=== PATIENT | female | born 1980 ===

== ENCOUNTER 2017-07-10 12:17 | Emergency (ER) | payer MEDICAID, OTHER ==
[2017-07-10 12:18] VITALS: BMI 48.9
[2017-07-10 12:44] VITALS: TEMP 97.9
[2017-07-10 13:25] VITALS: RESP 18; O2SAT 98
--- NOTE | 2017-07-10 14:06 | RAD ---
HISTORY: upper back pain COMPARISON: None available. TECHNIQUE: Chest PA and lateral FINDINGS: Examination limited by habitus and hypoinflation. LUNGS: No focal consolidation. Please note that chest x-ray has limited sensitivity for the detection of pulmonary masses. PLEURA: No significant pleural effusion identified. No definite pneumothorax . CARDIOVASCULAR: The cardiomediastinal silhouette appears within normal limits of size. OSSEOUS STRUCTURES: Mild degenerative changes. VISUALIZED UPPER ABDOMEN: Unremarkable. OTHER FINDINGS: None. IMPRESSION: No focal consolidation, significant pleural effusion, or definite pneumothorax identified.
--- NOTE | 2017-07-10 14:17 | ED PDOC ---
Arrival/HPI - General Chief Complaint: Back Pain Time Seen by Provider: 07/10/17 13:18 Historian: Patient - History of Present Illness Narrative History of Present Illness (Text): 07/10/17 14:14 36-year-old female presents today with a three-day history of right upper back pain. She denies chest pain shortness of breath. Denies fevers or chills. Denies nausea vomiting diarrhea or constipation. Patient denies any recent trauma or injury. Patient states she woke up with the pain 3 days ago. Patient states she takes Advil with complete relief of the pain. Patient states the only reason she is here today is because her boyfriend had a similar pain and was diagnosed with a pneumonia. Patient denies abdominal pain. Denies dizziness or weakness. Denies cough or shortness of breath or chest pain. No other complaints Past Medical History - Provider Review Nursing Documentation Reviewed: Yes - Travel History Have you recently traveled outside [place] w/in the past 3 mons?: No - Infectious Disease Hx of Infectious Diseases: None - Cardiac Hx Hypertension: Yes - Psychiatric Hx Depression: No Hx Emotional Abuse: No Hx Physical Abuse: No Hx Substance Use: No - Surgical History Hx Tonsillectomy: Yes - Anesthesia Hx Anesthesia: Yes Hx Anesthesia Reactions: No Hx Malignant Hyperthermia: No - Suicidal Assessment Feels Threatened In Home Enviroment: No Family/Social History - Physician Review Nursing Documentation Reviewed: Yes Family/Social History: Unknown Family HX Smoking Status: Former Smoker Hx Alcohol Use: No Hx Substance Use: No Hx Substance Use Treatment: No Allergies/Home Meds Allergies/Adverse Reactions: Allergies No Known Allergies Allergy (Verified 07/10/17 12:44) Review of Systems - Review of Systems Constitutional: absent: Fatigue, Fevers ENT: absent: Sinus Congestion Respiratory: absent: SOB, Cough Cardiovascular: absent: Chest Pain, Palpitations Gastrointestinal: absent: Abdominal Pain, Diarrhea, Nausea, Vomiting Genitourinary Female: absent: Dysuria, Frequency, Hematuria Musculoskeletal: Back Pain. absent: Arthralgias, Neck Pain Skin: absent: Rash, Pruritis Neurological: absent: Headache, Dizziness Psychiatric: absent: Anxiety, Depression Physical Exam Vital Signs Reviewed: Yes Vital Signs Temp Pulse Resp BP Pulse Ox 07/10/17 13:25 71 18 143/89 98 07/10/17 12:39 97.9 F 75 20 143/89 99 Temperature: Afebrile Blood Pressure: Normal Pulse: Regular Respiratory Rate: Normal Appearance: Positive for: Well-Appearing, Non-Toxic, Comfortable Pain Distress: None Mental Status: Positive for: Alert and Oriented X 3 - Systems Exam Head: Present: Atraumatic Mouth: Present: Moist Mucous Membranes Neck: Present: Normal Range of Motion, Paraspinal Tenderness (minimal right sided trapezius tenderness. ). No: MIDLINE TENDERNESS Respiratory/Chest: Present: Clear to Auscultation, Good Air Exchange. No: Respiratory Distress, Accessory Muscle Use Cardiovascular: Present: Regular Rate and Rhythm Abdomen: No: Tenderness Upper Extremity: Present: Normal Inspection, Normal ROM Lower Extremity: Present: Normal ROM Neurological: Present: GCS=15, Speech Normal, Gait Normal Skin: Present: Warm, Dry, Normal Color. No: Rashes Psychiatric: Present: Alert, Oriented x 3 Medical Decision Making ED Course and Treatment: 07/10/17 14:18 Patient nontoxic well-appearing in no distress with stable vital signs. Patient states she took Aleve before arrival with complete resolution of her symptoms. Patient is concerned about pneumonia as her boyfriend had same symptoms and had pneumonia last week. Patient refusing any medications at present time. Chest x-ray: No infiltrate and no effusion or cardiomegaly Discussed the results and after the patient advised follow-up with primary care physician within the next 2 days. Patient verbalizes understanding of discharge instructions and need for immediate followup. Impression: Back pain Motrin every 6 hours as needed for pain Flexeril one tablet every 8 hours as needed for muscle spasms: May cause drowsiness Followup with primary care physician within the next 2 days Return if symptoms worsen persist or if new symptoms develop - RAD Interpretation Radiology Orders: 07/10/17 13:18 CHEST TWO VIEWS (PA/LAT) [RAD] Stat Disposition/Present on Arrival - Present on Arrival Any Indicators Present on Arrival: No History of DVT/PE: No History of Uncontrolled Diabetes: No Urinary Catheter: No History of Decub. Ulcer: No History Surgical Site Infection Following: None - Disposition Have Diagnosis and Disposition been Completed?: Yes Diagnosis: Back pain Disposition: HOME/ ROUTINE Disposition Time: 14:15 Patient Plan: Discharge Condition: GOOD Discharge Instructions (ExitCare): Back Pain (ED) Additional Instructions: Motrin every 6 hours as needed for pain Flexeril one tablet every 8 hours as needed for muscle spasms: May cause drowsiness Followup with primary care physician within the next 2 days Return if symptoms worsen persist or if new symptoms develop Prescriptions: Cyclobenzaprine [Cyclobenzaprine HCl] 10 mg PO Q8 #10 tab Ibuprofen [Motrin] 600 mg PO Q6H PRN #20 tab PRN Reason: pain/fever reduction Referrals: Fernando Yoon MD [Staff Provider] - Follow up with primary Rafael Cope III, MD [Medical Doctor] - Follow up with primary Forms: [employer] ([place]ic)
[2017-07-10 14:28] VITALS: BP 144/85; PULSE 70
== END 2017-07-10 14:28 | disposition home or self-care (01) ==
LOC: ED 12:17
DX: M54.6 Pain in thoracic spine (principal)